=== PATIENT | female | born 2005 | race Caucasian/White ===

== ENCOUNTER 2025-01-23 19:13 | Emergency (ER) | payer SELFPAY ==
--- NOTE | ~2025-01-23 | CT_ITS ---
CLINICAL HISTORY: flank pain, hematuria CT abdomen and pelvis without contrast Comparison: None provided. Findings: No consolidation or effusion. The gallbladder and solid organs are within normal limits. No radiopaque left renal calculi are identified. Tiny nonobstructing right renal calculus present on coronal image number 51 of series 7. No hydronephrosis or hydroureter. No significant perinephric fat stranding identified. No bowel obstruction, pneumoperitoneum, or pneumatosis. Pelvic contents are unremarkable in appearance given the noncontrast technique. No bladder wall thickening. Minimal free fluid identified within the pelvis. Normal appendix. No acute fracture visualized. IMPRESSION: 1. No acute inflammatory process identified within the abdomen or pelvis. 2. Tiny nonobstructing right renal calculus. No hydronephrosis or hydroureter. 3. Minimal nonspecific free fluid present within the pelvis, possibly physiologic in etiology or related to a recently ruptured ovarian cyst. This document has been electronically signed by: Yoandy Garcia MD on 01/23/2025 22:09:19
[2025-01-23 19:27] VITALS: BP 144/68; PULSE 97; RESP 18; TEMP 36.6; O2SAT 98; BMI 29.7
--- NOTE | 2025-01-23 19:27 | ED.GENADULT ---
HPI - General Adult General Chief complaint: Urogenital-Female Stated complaint: bloody pain urinating Time Seen by Provider: 01/23/25 21:05 Source: patient Mode of arrival: ambulatory History of Present Illness ED Provider: Dr. Angeline Story HPI narrative: Previously healthy 19-year-old female presenting with suprapubic abdominal pain radiating to the right flank ongoing for the last 2 days or so. Describes some dysuria and yesterday noticed hematuria. No associated fever. Mild associated constipation. No reported hematochezia with her last bowel movement. Last menstrual cycle was about 3 weeks ago. Pain does not feel like period cramps. Has a history of UTI and reports pain is similar to that. Related Data Previous Rx's ?Medication ?Instructions ?Recorded cephalexin 500 mg capsule 500 mg PO QID 7 days #28 caps 01/23/25 ondansetron 4 mg disintegrating 4 mg PO Q8H PRN nausea and 01/23/25 tablet vomiting #10 tabs phenazopyridine 100 mg tablet 100 mg PO TID PRN pain 6 doses #6 01/23/25 (Pyridium) tabs Allergies Allergy/AdvReac Type Severity Reaction Status Date / Time cristóbal Allergy Hives Verified 01/23/25 19:31 Review of Systems Review of Systems: as per HPI, full review of systems performed and negative but for the above mentioned pertinent positives and negatives. [facility] Social History Social History Alcohol intake: current Smoked in Last 30 Days: No Use of substances other than those prescribed or required for medical reasons: Yes Substance Use Type: Marijuana Advance Directives: No Advance Directives Information Provided: No Patient : No Physical Exam ED Exam Exam: GENERAL: Well-Appearing, conversant, no acute distress. SKIN: Normal skin color for ethnicity, warm, dry, no rashes noted. HEENT:? Normocephalic, atraumatic, no stridor, posterior oropharynx nonerythematous, dentition intact, EOMI. NECK: Soft, supple, full ROM, midline structures nontender, no step-offs, no deformities, no lymphadenopathy. CHEST: Heart regular rate and rhythm, no murmurs, symmetric chest rise and fall. PULMONARY: Clear to auscultation bilaterally, no labored breathing, no wheezes/rhales/rhonchi. ABDOMINAL: Soft, nondistended, suprapubic tenderness to palpation, positive bowel sounds in all quadrants. : Deferred. MUSCULOSKELETAL: Normal tone, full range of motion, no deformities, no peripheral edema. NEURO: Alert and oriented x3, CN II through XII intact, equal strength and sensation bilateral upper and lower extremities, no focal neurologic deficits.? PSYCHIATRIC: Normal affect, fluid speech, good eye contact and appropriate demeanor. Vital Signs: Vital Signs - 24 hr 01/23/25 19:27 01/23/25 21:15 Temperature 97.9 F 98.6 F Pulse Rate 97 80 Respiratory Rate 18 18 Blood Pressure 144/68 H 125/81 Pulse Oximetry 98 98 Oxygen Delivery Method Room Air Room Air BMI result Body Mass Index 29.7 Course Course Course Narrative: 19 year old female presents to the ED with blood in the urine. Earlier this afternoon, she had pain the lower abdomen and increased urinary frequency though with minimal volume each time. There was blood in the toilet and when wiping x1. There is associated right sided flank pain. She has nausea but no vomiting. She has never had kidney stones before. Medications Administered Discontinued Medications Generic Name Dose Route Start Last Admin Trade Name Freq PRN Reason Stop Dose Admin Cephalexin HCl 500 mg 01/23/25 21:17 01/23/25 21:27 Cephalexin 500 Mg Capsule PO 01/23/25 21:18 500 mg ONCE ONE Administration Ibuprofen 600 mg 01/23/25 21:17 01/23/25 21:28 Ibuprofen 600 Mg Tablet PO 01/23/25 21:18 600 mg ONCE ONE Administration Ondansetron HCl 4 mg 01/23/25 21:55 01/23/25 22:01 Ondansetron Odt 4 Mg Tab.Rapdis TRANSLINGU 01/23/25 21:56 4 mg ONCE ONE Administration Phenazopyridine HCl 200 mg 01/23/25 21:17 01/23/25 21:28 Phenazopyridine Hcl 200 Mg Tablet PO 01/23/25 21:18 200 mg ONCE ONE Administration Medical Decision Making Medical Decision Making [facility] Narrative: This patient presents today with a chief complaint of pelvic pain and dysuria. Differential diagnosis is broad and would include ovarian torsion, PID, TOA, if ectopic , pyelonephritis, kidney stone, UTI among many others. A broad-based workup based on history and physical exam was obtained Patient was given motrin, pyridium for pain control. 10:29 PM 01/23/2025 (Dr. Angeline Story, Heron.O.) urinalysis does show evidence of infection. She has normal kidney function, normal electrolytes, no elevation in her white blood cell count. She is afebrile today. CT does not show evidence of obstructing ureteral stone. She does have a small kidney stone in the right kidney but I doubt this is contributing to her pain or infection today. We had an extensive discussion regarding use of antibiotics as well as strict return precautions to the emergency department. Differential Diagnosis Differential Diagnoses: The differential diagnosis associated with the presentation includes (as above) Admission/Observation Consideration of admission/observation: Escalation of care including admission/observation considered Lab Data MDM Lab Attestation statement: I reviewed the patient's lab results. 01/23/25 19:51 01/23/25 19:50 Labs: Lab Results 01/23/25 01/23/25 Range/Units 19:50 19:51 WBC 12.0 H (4.8-10.8) X10*3/uL RBC 4.30 (4.20-5.50) X10*6/uL Hgb 12.9 (12.0-16.0) g/dl Hct 37.1 (37.0-47.0) % MCV 86.3 (80.0-98.0) fL MCH 30.0 (27.0-33.0) pg MCHC 34.8 (31.0-35.0) g/dl RDW 13.5 (11.0-16.0) % Plt Count 229 (160-400) X10*3/uL MPV 10.8 (9.4-12.3) fL Immature Gran % (Auto) 0.3 (0.0-0.4) % Neut % (Auto) 77.5 H (45-73) % Lymph % (Auto) 14.7 L (20-40) % [place] % (Auto) 6.9 (2-11) % Eos % (Auto) 0.3 (0-4) % Baso % (Auto) 0.3 (0-2) % Lymph # (Auto) 1.8 (1.2-4.9) X10*3/uL [place] # (Auto) 0.8 (0.1-1.2) X10*3/uL Eos # (Auto) 0.0 (0.0-0.4) X10*3/uL Baso # (Auto) 0.0 (0.0-0.2) X10*3/uL Abs Immat Gran (auto) 0.04 H (0.00-0.03) X10*3/uL Absolute Neuts (auto) 9.3 H (2.0-8.3) x10*3/uL Absolute Nucleated RBC 0.000 (0.0-0.012) X10*3/uL Nucleated RBC % (auto) 0.0 (0.0-0.2) /100WBC Sodium 136 (135-145) mmol/L Potassium 3.6 (3.3-5.1) mmol/L Chloride 104 (96-108) mmol/L Carbon Dioxide 24 (22-29) mmol/L Anion Gap 12 (12-20) BUN 10 (9-16) mg/dL Creatinine 0.82 (0.5-1.4) mg/dL Estim Creat Clear Calc 114.0 Estimated GFR > 60 Random Glucose 120 H (60-115) mg/dL Calcium 9.4 (8.4-10.2) mg/dL Magnesium 2.0 (1.6-2.6) mg/dL Total Bilirubin 0.5 (0.0-1.0) mg/dL AST 29 (5-31) U/L ALT 31 (0-31) U/L Alkaline Phosphatase 73 (39-117) U/L Total Protein 7.4 (6.5-8.0) g/dL Albumin 4.8 (3.5-5.0) g/dL Beta HCG, Quant < 2 mIU/mL Urine Color Yellow Urine Appearance Turbid Urine pH 6.0 (5.0-9.0) Ur Specific [place] 1.020 (1.005-1.025) Urine Protein 300 (3+) H (Neg-Trace) mg/dL Urine Glucose (UA) Negative (Negative) mg/dL Urine Ketones Negative (Negative) mg/dL Urine Blood Large (3+) H (Negative) Urine Nitrite Positive H (Negative) Ur Leukocyte Esterase Large (3+) H (Negative) Urine RBC >20 H (0-2) /HPF Urine WBC >50 H (0-5) /HPF Ur Squamous Epith Cells 3-5 (0-2) /HPF Urine Bacteria 2+ (None Seen) Hyaline Casts 0-2 (0-2) /LPF Radiology Impression Discussion of test interpretation with radiology: I have reviewed the radiologist's reading. Prescription Management I considered prescription management with: Pain Medication and Antibiotic Discharge Plan Discharge Clinical Impression: Hemorrhagic cystitis Patient Disposition: Home, Self-Care Instructions: Urinary Tract Infection in Women (ED) Additional Instructions: Take your antibiotic as prescribed until the course is completed. Do not stop this medication early if you start to feel better. Return to the emergency department with any new or worsening symptoms including: Worsening pain, fevers greater than 100? despite antibiotic treatment, vomiting, or any new symptom that concerns you. Call 911 with any medical emergency. Prescriptions: New phenazopyridine [Pyridium] 100 mg tablet 100 mg PO TID PRN (Reason: pain) Qty: 6 0RF cephalexin 500 mg capsule 500 mg PO QID 7 Days Qty: 28 0RF ondansetron 4 mg tablet,disintegrating 4 mg PO Q8H PRN (Reason: nausea and vomiting) Qty: 10 0RF Print Language: Solomon Islander
[2025-01-23 19:57] LABS: MANUAL DIFF FLAG NO
[2025-01-23 19:58] LABS: Appearance Urine Turbid; Glucose Urine UA Negative (Negative); Hematocrit 37.1 % (37.0-47.0); Hemoglobin 12.9 g/dl (12.0-16.0); Imm Gran Abs Auto 0.04 X10*3/uL (0.00-0.03); Imm Gran Pct Auto 0.3 % (0.0-0.4); Lymphocytes Absolute Auto 1.8 X10*3/uL (1.2-4.9); Mean Corpuscular HGB Conc 34.8 g/dl (31.0-35.0); Mean Corpuscular Hemoglobin 30.0 pg (27.0-33.0); Mean Corpuscular Volume 86.3 fL (80.0-98.0); NRBC Abs Auto 0.000 X10*3/uL (0.0-0.012); NRBC Pct Auto 0.0 /100WBC (0.0-0.2); PH 6.0 (5.0-9.0); Platelet Count 229 X10*3/uL (160-400); Red Blood Count 4.30 X10*6/uL (4.20-5.50); Specific Gravity - Urine 1.020 (1.005-1.025); UMIC TRIGGER UACC YES; White Blood Count 12.0 X10*3/uL (4.8-10.8)
[2025-01-23 20:03] LABS: UACC Culture Trigger YES
[2025-01-23 20:11] LABS: Alanine Aminotransferase 31 U/L (0-31); Albumin Level 4.8 g/dL (3.5-5.0); Alkaline Phosphatase 73 U/L (39-117); Anion Gap 12 (12-20); Aspartate Amino Transferase 29 U/L (5-31); Blood Urea Nitrogen 10 mg/dL (9-16); Calcium 9.4 mg/dL (8.4-10.2); Carbon Dioxide 24 mmol/L (22-29); Chloride 104 mmol/L (96-108); Creatinine Clr Calc Pharmacy 114.0; Estimated Glomerular Filt Rate > 60; Magnesium 2.0 mg/dL (1.6-2.6); Potassium 3.6 mmol/L (3.3-5.1); Sodium 136 mmol/L (135-145); Total Protein 7.4 g/dL (6.5-8.0)
[2025-01-23 21:15] VITALS: BP 125/81; PULSE 80; RESP 18; TEMP 37; O2SAT 98
--- OUTSIDE RECORDS SUMMARY | 2025-01-23 21:32 | XMS_ITS | Encounter Summary ---
Author Organization [facility] Address [address] [place] [address] Care Team Providers Care Manipulator Operator Name Role Phone Soco Riojas MD Primary Care Provider [phone] Encounter Details Date Type Department Care Team (Late st Contact Info) Description 10/14/2023 Lab Requisition [facility] [address] [place] [address] [phone] Vin Moreno MD [address] [facility] [address] [place] [address] Encounter for general adult medical examination without abnormal findings Social History Tobacco Use Types Packs/Day Years Used Date Smoking Tobacco: Never Smokeless Tobacco: Never Alcohol Use Standard Drinks/Week Comments Not Currently 0 (1 standard drink = 0.6 oz pur e alcohol) Comments Unknown Sex and Gender Information Value Date Recorded Sex Assigned at Female 04/24/2018 10:30 AM EST Legal Sex Female 10:43 PM EDT Gender Identity Female 04/24/2018 10:30 AM EST Sexual Orientation Not on file documented as of this encounter Plan of Treatment Not on file documented as of this encounter Procedures Procedure Name Priority Date/Time Associated Diagnosis Comments HIGH RISK HPV SCREEN (>30 YEARS) Routine 10/13/2023 10:00 AM EDT Encounter for general adult medical examination without abnormal findings LIQUID BASED PAP, CO-TESTING Routine 10/13/2023 10:00 AM EDT Encounter for general adult medical examination without abnormal findings documented in this encounter Results * High Risk HPV Screen (>30 years) (10/13/2023 10:00 AM EDT) HPV mRNA E6 / E7 Negative Negative 10/15/2023 3:23 PM EDT [facility] Comment: This HPV screen detects 12 high risk HPV types 31, 33, 35, 39, 45, 51, 52, 56, 58, 59, 66, and 68. HPV type 16 and type 18 are reported separately. The corwin HPV test detects 14 high risk HPV (HPV-HR) types in all. A negative result does not preclude the presence of HPV infection because results depend on adequate specimen collection, absence of inhibitors, and sufficient DNA to be detected. HPV 16 Negative Negative 10/15/2023 3:23 PM EDT [facility] HPV 18 Negative Negative 10/15/2023 3:23 PM EDT [facility] Genital CERVIX UTERI STRUCTURE / Unknown 10/13/2023 10:00 AM EDT 10/14/2023 8:47 AM EDT Vin Moreno MD MICROBIOLOGY - GENERAL ORDERABLE S Final Result [facility] [address] [place] [address] * LB PAP, Co-testing (10/13/2023 10:00 AM EDT) Pathologist [facility] Clinical Inforamtion: None given 10/21/2023 8:00 AM EDT [facility] SecurityLuzmaThrupointMARTA VALDIVIA LMP NONE GIVEN 10/21/2023 8:00 AM EDT [facility] SecurityFILOMENA VALDIVIA Previous PAP NONE GIVEN 10/21/2023 8:00 AM EDT [facility] SecurityANGELIA VALDIVIA Previous Biopsy NONE GIVEN 8:00 AM EDT [facility] SecurityLThrupointOUGH SHEA Source None given 10/21/2023 8:00 AM EDT [facility] PALOUGH SHEA Adequacy Satisfactory for evaluation. Endocervical/ziegler sformation zone component present. 10/21/2023 8:00 AM EDT [facility] EVANGELINA VALDIVIA Interpretation Cytology Results: Negative for intraepithelial lesion or malignancy. 10/21/2023 8:00 AM EDT [facility] EVANGELNIA VALDIVIA Comment: This Pap test has been evaluated with computer assisted technology. 10/21/2023 8:00 AM EDT [facility] Precision Lens Polisher: LOUISE DIGGS (ASCP) CT Screening Location: [employer] [place] [address] Slide preparation performed at: [facility] [address] CLIA No. [id number] 10/21/2023 8:00 AM EDT [facility] Comment SEE NOTE 10/21/2023 8:00 AM EDT [facility] Comment: EXPLANATORY NOTE: The Pap is a screening test for cervical cancer. It is not a diagnostic test and is subject to false negative and false positive results. It is most reliable when a satisfactory sample, regularly obtained, is submitted with relevant clinical findings and history, and when the Pap result is evaluated along with historic and current clinical information. Genital CERVIX UTERI STRUCTURE / Unknown 10/13/2023 10:00 AM EDT 10/14/2023 8:47 AM EDT Narrative [facility] - 10/21/2023 8:00 AM EDT Performing Organization Information: Site ID: [id number] Name: [facility] Address: [address] [place] [id number] Director: FANTA MCKEON MD us Vin Moreno MD PATHOLOGY/CYTOLOGY ORDERABLES Fi nal Result [address] [address], documented in this encounter Visit Diagnoses Diagnosis Encounter for general adult medical examination without abnormal findings documented in this encounter Care Teams Manipulator Operator Relationship Specialty Start Date End Date Soco Riojas MD [address] [place] [address] [address] [place] [address] PCP - General 07/20/09 documented as of this encounter
--- OUTSIDE RECORDS SUMMARY | 2025-01-23 21:32 | XMS_ITS | Clinical Summary ---
Author Organization [facility] Address [address] [facility] [address] [place] [address] Care Team Providers Care Diabetes Clinical Manager Name Role Phone Soco Riojas MD Primary Care Provider [phone] Allergies Active Allergy Reactions Criticality Noted Date Comments Garrett Flavor Rash Low 04/28/2017 Medications escitalopram (Lexapro) 10 mg tablet Take 15 mg by mouth once daily. Active Active Problems Problem Noted Date Diagnosed Date Perioral dermatitis 08/22/2023 POTS (postural orthostatic tachycardia syndrome) 08/17/2022 Lightheadedness 08/17/2022 Anxiety 08/17/2022 Social History Tobacco Use Types Packs/Day Years Used Date Smoking Tobacco: Unknown Tobacco Cessation:Counseling Given: Not Answered Comments Unknown Sex and Gender Information Value Date Recorded Sex Assigned at Female 11/20/2023 12:26 PM EDT Legal Sex Female 12:17 AM EST Gender Identity Female 11/20/2023 12:26 PM EDT Sexual Orientation Lesbian 11/20/2023 12 :26 PM EDT Last Filed Vital Signs Vital Sign Reading Time Taken Comments Blood Pressure 127/85 11/20/2023 4:31 PM EDT Pulse 75 11/20/2023 3:30 PM EDT Temperature 37.1 C (98.7 F) 11/20/2023 12:27 PM EDT Respiratory Rate 17 11/20/2023 3:30 PM EDT Oxygen Saturation 98% 11/20/2023 3:30 PM EDT Inhaled Oxygen Concentration - - Weight 59 kg (130 lb) 11/20/2023 12:27 PM EDT Height 162.6 cm (5' 4 ) 11/20/2023 12:27 PM EDT Body Mass Index 22.31 11/20/2023 12:27 PM EDT Plan of Treatment Health Maintenance Due Date Last Done Comments HIV Screening 2003 Meningococcal B Vaccine (1 of 2 - Standard) 2019 HPV Vaccines (2 - 3-dose series) 06/22/2019 05/25/2019 Hepatitis C Screening 2021 Chlamydia Screening 04/26/2022 04/26/2021, 04/26/2021, 10/28/2020, Additional history exists Depression Screening 04/21/2024 COVID-19 Vaccine (3 - season) 2024 09/09/2020, 08/19/2020 Influenza Vaccine (#1) 2024 DTaP/Tdap/Td Vaccines (2 - Td or Tdap) 02/16/2025 02/16/2015 Pap Smear 10/12/2026 10/13/2023, 10/13/2023 Hepatitis B Vaccines Completed 03/28/2004, 2003, 2003 MMR Vaccines Completed 12/22/2008, 03/28/2004 Varicella Vaccines Completed 12/22/2008, 03/28/2004 Meningococcal Vaccine Completed 06/01/2020, 015 HIB Vaccines Aged Out No longer eligi ble based on patient's age to complete this topic Hepatitis A Vaccines Aged Out No long er eligible based on patient's age to complete this topic IPV Vaccines Aged Out No longer eligi ble based on patient's age to complete this topic Pneumococcal Vaccine: Pediatrics (0 to 5 Years) and At-Risk Patients (6 to 49 Years) Aged Out No longer eligible based on patient's age to complete this topic Rotavirus Vaccines Aged Out No longer eligible based on patient's age to complete this topic Insurance [facility] OUT STATE PPO Care Teams Diabetes Clinical Manager Relationship Specialty Start Date End Date Soco Riojas MD PCP - General 05/25/21
--- OUTSIDE RECORDS SUMMARY | 2025-01-23 21:32 | XMS_ITS | Clinical Summary ---
Author Organization [facility] Care Address [address] [place] [id number] Care Team Providers Care Edge Drummer Name Role Phone Generic, Provider Primary Care Provider [phone] Allergies No known active allergies Medications No known medications Active Problems No known active problems Social History Tobacco Use Types Packs/Day Years Used Date Smoking Tobacco: Never Alcohol Use Standard Drinks/Week Comments No 0 (1 standard drink = 0.6 oz pur e alcohol) Smokers at home outside Comments Unknown Sex and Gender Information Value Date Recorded Sex Assigned at Not on file Legal Sex Female 8:34 AM EST Gender Identity Not on file Sexual Orientation Not on file Last Filed Vital Signs Vital Sign Reading Time Taken Comments Blood Pressure - - Pulse 105 08/17/2012 10:24 AM EDT Temperature 36.8 C (98.3 F) 08/17/2012 10:24 AM EDT Respiratory Rate 18 08/17/2012 10:24 AM EDT Oxygen Saturation 100% 08/17/2012 10:24 AM EDT Inhaled Oxygen Concentration - - Weight 38.4 kg (84 lb 10.5 oz) 08/17/2012 10:24 AM EDT Height - - Body Mass Index - - Plan of Treatment Not on file Insurance #1 [place] [address] MEDICAID [facility] Care Teams Edge Drummer Relationship Specialty Start Date End Date Generic, Provider [address] [address] PCP - General Generic/Test/No PCP 08/17/12
--- OUTSIDE RECORDS SUMMARY | 2025-01-23 21:32 | XMS_ITS | Encounter Summary ---
Author Organization [facility] Address [address] [place] [address] Care Team Providers Care Field Service Poultry Technician Name Role Phone Soco Riojas MD Primary Care Provider [phone] Encounter Details Date Type Department Care Team (Latest Contact Info) Description 04/26/2021 Lab Requisition [facility] [address] [place] [address] [phone] Ritu Grimm, DO [address] [place] [address] Dysuria; Other specified noninflammatory disorders of vagina Social History Tobacco Use Types Packs/Day Years Used Date Smoking Tobacco: Never Smokeless Tobacco: Never Comments Unknown Sex and Gender Information Value Date Recorded Sex Assigned at Female 04/24/2018 10:30 AM EST Legal Sex Female 10:43 PM EDT Gender Identity Female 04/24/2018 10:30 AM EST Sexual Orientation Not on file documented as of this encounter Plan of Treatment Not on file documented as of this encounter Procedures Procedure Name Priority Date/Time Associated Diagnosis Comments VAGINITIS PANEL KIT Routine 04/26/2021 8 :26 PM EST Dysuria Other specified noninflammatory disorders of vagina CULTURE, AEROBIC, URINE Routine 04/26/2021 8:26 PM EST Dysuria Other specified noninflammatory disorders of vagina AMPLIFIED PROBE, CHLAMYDIA AND GC Routine 04/26/2021 8:26 PM EST Dysuria Other specified noninflammatory disorders of vagina URINALYSIS WITH MICROSCOPIC Routine 04/26/2021 8:26 PM EST Dysuria Other specified noninflammatory disorders of vagina documented in this encounter Results * Chlamydia and GC AmplifiedProbe (04/26/2021 8:26 PM EST) C. trachomatis by Amplified Probe Negative Negative PANTHER NON-FUSION 04/29/2021 2:21 PM EST [facility] N. gonorrhoeae by Amplified Probe Negative Negative TEN MILE NON-FUSION 04/29/2021 2:21 PM EST [facility] xOther FIRST STREAM URINE SPECIMEN / Unknown 04/26/2021 8:26 PM EST 04/26/2021 8:27 PM EST [facility] - 04/29/2021 2:21 PM EST This test was developed and its performance characteristics determined internally by our laboratory for female urine samples. It has not been cleared or approved by the U.S. Food and Drug Administration. FDA does not require this test to go through premarket FDA review. This test is used for clinical purposes. It should not be regarded as investigational or for research. This laboratory is certified under Clinical Laboratory Improvement Amendments (CLIA) as qualified to perform high complexity clinical laboratory testing Riut Grimm DO MICROBIOLOGY - GENERAL ORD ERABLES Final Result [facility] [address] [place] [address] * (ABNORMAL) Urinalysis with Sediment (04/26/2021 8:26 PM EST) Color, Urine Yellow Colorless, Straw, Yellow 04/26/2021 9:11 PM EST [facility] Clarity, Urine Clear Clear 04/26/2021 9:11 PM EST [facility] pH, Urine 5.0 5.0 - 9.0 04/26/2021 9:11 PM EST [facility] Specific [place], Urine 1.019 1.001 - 1.030 04/26/2021 9:11 PM EST [facility] Protein, Urine Negative Negative 04/26/2021 9:11 PM EST [facility] Glucose, Urine Negative Negative 04/26/2021 9:11 PM EST [facility] Ketone, Urine Negative Negative 04/26/2021 9:11 PM EST [facility] Bilirubin, Urine Negative Negative 04/26/2021 9:11 PM EST [facility] Urobilinogen, Urine Negative Negative 04/26/2021 9:11 PM EST [facility] Blood, Urine Negative Negative 04/26/2021 9:11 PM EST [facility] Leukocyte Esterase, Urine Negative Negative 04/26/2021 9:11 PM EST [facility] Nitrite, Urine Negative Negative 04/26/2021 9:11 PM EST [facility] White Blood Cells, Urine 1 <=4 /hpf 04/26/2021 9:11 PM EST [facility] Red Blood Cells, Urine 1 <=2 /hpf 04/26/2021 9:11 PM EST [facility] Squamous Epithelial Cells Many(A) None, Rare, Few /HPF 04/26/2021 9:11 PM EST [facility] Mucous Threads 1+ None Seen, 1+, 2+ 04/26/2021 9:11 PM EST [facility] Urine MID-STREAM URINE SPECIMEN / Unknown 04/26/2021 8:26 PM EST 04/26/2021 8:26 PM EST us Ritu Grimm DO URINE ORDERABLES Final Res ult Performing Organization Address City/[facility]/ZIP Co de Phone Number [facility] [address] [place] [address] * Culture, Aerobic, Urine (04/26/2021 8:26 PM EST) Culture 10,000-50,000 CFU/mL mixed urogenital maya, probable contamination MILE 04/28/2021 6:52 AM EST [facility] Urine 04/26/2021 8:26 PM EST 04/26/2021 8:26 PM EST us Ritu Grimm DO MICROBIOLOGY - GENERAL ORD ERABLES Final Result Performing Organization Address City/[facility]/ZIP Co de Phone Number [facility] [address] [place] [address], * Vaginitis Panel Kit (04/26/2021 8:26 PM EST) Gardnerella Vaginalis Negative Negative MILE 04/27/2021 6:02 AM EST [facility] Trichomonas vaginalis Negative Negative MILE 04/27/2021 6:02 AM EST [facility] Bambi species Negative Negative MILE 04/27/2021 6:02 AM EST [facility] Genital VAGINAL STRUCTURE / Unknown 04/26/2021 8:26 PM EST 04/26/2021 8:26 PM EST Narrative [facility] - 04/27/2021 6:02 AM EST Testing performed using [employer] VPIII microbial identification system by DNA probe. Ritu Grimm DO MICROBIOLOGY - GENERAL ORD ERABLES Final Result [facility] [address] [place] [address], documented in this encounter Visit Diagnoses Diagnosis Dysuria Other specified noninflammatory disorders of vagina documented in this encounter Care Teams Field Service Poultry Technician Relationship Specialty Start Date End Date Soco Riojas MD [address] [place] [address] [address] [place] [address] PCP - General 07/20/09 documented as of this encounter
--- OUTSIDE RECORDS SUMMARY | 2025-01-23 21:33 | XMS_ITS | Encounter Summary ---
Author Organization Neda Pineda [facility] Address [address] [place] [address] Care Team Providers Care Painter And Grader Cork Name Role Phone Soco Riojas MD Primary Care Provider [phone] Encounter Details Date Type Department Care Team (Late st Contact Info) Description 09/13/2020 Lab Requisition [facility] [address] [place] [address] [phone] Dariana Tan PA [address] [place] [address] Dysuria Social History Tobacco Use Types Packs/Day Years [...] Procedure Name Priority Date/Time Associated Diagnosis Comments CULTURE, AEROBIC, URINE Routine 09/13/2020 6:56 PM EDT Dysuria URINALYSIS WITH URINE CULTURE REFLEX Routine 09/13/2020 6:56 PM EDT Dysuria documented in this encounter Results * (ABNORMAL) Culture, Aerobic, Urine (09/13/2020 6:56 PM EDT) Culture >100,000 CFU/mL mixed urogenital maya, probable contamination MILE 09/16/2020 6:48 AM EDT [facility] Culture >100,000 CFU/ML Escherichia coli(A) MILE 09/16/2020 6:48 AM EDT [facility] Comment:Predominant organism Urine MID-STREAM URINE SPECIMEN / Unknown 09/13/2020 6:56 PM EDT 09/13/2020 8:45 PM EDT Narrative Organism Antibiotic Method Susceptibility Escherichia coli - MILE Escherichia coli Ampicillin MILE 4 ug/ml: Sensitive Escherichia coli Ampicillin + Sulbactam MILE <=2 ug/ml: Sensitive Escherichia coli Cefazolin MILE <=4 ug/ml: Sensitive Escherichia coli Ciprofloxacin MILE <=0.25 ug/ml: Sensitive Escherichia coli Meropenem MILE <=0.25 ug/ml: Sensitive Escherichia coli Gentamicin MILE <=1 ug/ml: Sensitive Escherichia coli Nitrofurantoin MILE <=16 ug/ml: Sensitive Escherichia coli Trimethoprim + Sulfamethoxazole MILE <=20 ug/ml: Sensitive Escherichia coli Piperacillin + Tazobactam MILE <=4 ug/ml: Sensitive Escherichia coli Levofloxacin MILE <=0.12 ug/ml: Sensitive Dariana RIOS MICROBIOLOGY - GENERAL ORDERABLE S Final Result [facility] [address] [place] [address], * (ABNORMAL) Urinalysis with Reflex to Urine Culture (09/13/2020 6:56 PM EDT) Color, Urine Yellow Colorless, Straw, Yellow 09/13/2020 8:45 PM EDT [facility] Clarity, Urine Slightly Cloudy(A) Clear 09/13/2020 8:45 PM EDT [facility] pH, Urine 6.0 5.0 - 9.0 09/13/2020 8:45 PM EDT [facility] Protein, Urine Negative Negative 09/13/2020 8:45 PM EDT [facility] Ketone, Urine Negative Negative 09/13/2020 8:45 PM EDT [facility] Glucose, Urine Negative Negative 09/13/2020 8:45 PM EDT [facility] Blood, Urine Negative Negative 09/13/2020 8:45 PM EDT [facility] Leukocyte Esterase, Urine Trace(A) Negative 09/13/2020 8:45 PM EDT [facility] Nitrite, Urine Negative Negative 09/13/2020 8:45 PM EDT [facility] Specific [place], Urine 1.020 1.001 - 1.035 09/13/2020 8:45 PM EDT [facility] Bilirubin, Urine Negative Negative 09/13/2020 8:45 PM EDT [facility] Urobilinogen, Urine Negative Negative 09/13/2020 8:45 PM EDT [facility] White Blood Cells, Urine 15(H) <=4 /hpf 09/13/2020 8:45 PM EDT [facility] Red Blood Cells, Urine 1 <=2 /hpf 09/13/2020 8:45 PM EDT [facility] Bacteria Urine Rare None Seen, Rare 09/13/2020 8:45 PM EDT [facility] Mucous Threads 1+ None Seen, 1+, 2+ 09/13/2020 8:45 PM EDT [facility] Squamous Epithelial Cells Many(A) None, Rare, Few /HPF 09/13/2020 8:45 PM EDT [facility] Urine MID-STREAM URINE SPECIMEN / Unknown 09/13/2020 6:56 PM EDT 09/13/2020 8:28 PM EDT us Dariana RIOS URINE ORDERABLES Final Result [facility] [address] [place] [address] documented in this encounter Visit Diagnoses Diagnosis Dysuria documented in this encounter Care Teams Painter And Grader Cork Relationship Specialty Start Date End Date Soco Riojas MD [address] [place] [address] [address] [place] [address] PCP - General 07/20/09 documented as of this encounter
--- OUTSIDE RECORDS SUMMARY | 2025-01-23 21:33 | XMS_ITS | Clinical Summary ---
Author Organization [facility] Address [address] [facility] [address] [place] [address] Phone Care Team Providers Care Manager Domestic Name Role Phone Soco Riojas MD Primary Care Provider [phone] Allergies No known active allergies Medications predniSONE (DELTASONE) 1 MG tablet Take 1 mg by mouth daily. Active fluocinolone (SYNALAR) 0.025 % ointment Apply topically 2 (two) times a day. Apply to affected areas bid x 2 weeks. 15 g 2 7 Active Active Problems Problem Noted Date Diagnosed Date Perioral dermatitis 08/22/2023 Immunizations No known immunizations Family History Medical History Relation Comments Melanoma Unspecified Relation Status Comments Unspecified Alive Social History Tobacco Use Types Packs/Day Years Used Date Smoking Tobacco: Some Days Cigarettes Smokeless Tobacco: Never Tobacco Cessation:Ready to Q uit: Not Asked; Counseling Given: Not Answered Alcohol Use Standard Drinks/Week Comments No 0 (1 standard drink = 0.6 oz pur e alcohol) Education Answer Date Recorded Are you interested in more education? Not on pipe e 08/16/2022 Are you concerned about learning? Not on file 08/16/2022 No 08/16/2022 No 08/16/2022 Digital Access Answer Date Recorded No 09/16/2022 No 09/16/2022 Reliable internet access at home? Not on file 09/16/2022 Device with a working camera? Not on file Comments Unknown Sex and Gender Information Value Date Recorded Sex Assigned at Not on file Legal Sex Female 11:49 AM EDT Gender Identity Not on file Sexual Orientation Not on file Last Filed Vital Signs Vital Sign Reading Time Taken Comments Blood Pressure 116/82 08/22/2023 2:58 PM EDT Pulse - - Temperature - - Respiratory Rate - - Oxygen Saturation - - Inhaled Oxygen Concentration - - Weight 59 kg (130 lb) 08/22/2023 2:58 PM EDT Height 165.1 cm (5' 5 ) 08/22/2023 2:58 PM EDT Body Mass Index 21.63 08/22/2023 2:58 PM EDT Plan of Treatment Health Maintenance Due Date Last Done Comments COMBINED DTaP,Tdap,Td (2 - T d or Tdap) 03/16/2015 02/16/2015 DEPRESSION SCREENING 2015 SMOKING Hx and SMOKELESS TOBACCO SCREENING 2016 CHLAMYDIA SCREENING 2019 MENINGOCOCCAL VACCINES (B) ( 1 of 2 - Standard) 2019 HPV VACCINES (2 - 3-dose series) 06/22/2019 05/25/2019 ADOLESCENT UNIVERSAL LIPID SCREENING 2020 HEPATITIS C SCREENING 2021 HIV ONE-TIME SCREENING (18-6 5 YEARS) 2021 PNEUMOCOCCAL VACCINES (0-49 years) (1 of 2 - PCV) 2022 PAP SMEAR 2024 INFLUENZA VACCINE (#1) 2024 COVID-19 VACCINE (3 - 2024-2 6 season) 2024 09/09/2020, 08/19/2020 Adult Td,Tdap Booster 02/16/2025 02/16/2015 MMR VACCINES Completed 12/22/2008, 03/28/2004 MENINGOCOCCAL VACCINES (ACWY) Completed , 02/16/2015 HEPATITIS A VACCINES Aged Out No long er eligible based on patient's age to complete this topic HIB VACCINES Aged Out No longer eligi ble based on patient's age to complete this topic Medical Devices Not on file Insurance [facility] OUT OF STATE PPO Care Teams Manager Domestic Relationship Specialty Start Date End Date Soco Riojas MD [address] [place] [id number] PCP - General Pediatrics 10/14/16 Additional Source Comments The information contained in this document represents components of the legal health record. It is not the complete legal health record.[facility]
--- OUTSIDE RECORDS SUMMARY | 2025-01-23 21:33 | XMS_ITS | Clinical Summary ---
Author Organization Neda Pineda [facility] Address [address] [place] [address] Care Team Providers Care Office Lead Name Role Phone Soco Riojas MD Primary Care Provider [phone] Allergies Active Allergy Reactions Criticality Noted Date Comments [place] Flavor Rash Low 04/28/2017 Medications LORazepam (ATIVAN) 0.5 MG tablet daily as needed. 2 Active omeprazole (PriLOSEC) [address] capsule 10 mg 2 times a day before breakfast & dinner. 2 Active ondansetron (ZOFRAN) 8 MG tablet daily as needed. 2 Active escitalopram oxalate (LEXAPRO) 10 MG tablet Take 1 tablet (10 mg total) by mouth daily. 3 Active Active Problems Problem Noted Date Diagnosed Date Lightheadedness 08/17/2022 POTS (postural orthostatic tachycardia syndrome) 08/17/2022 Anxiety 08/17/2022 Social History Tobacco Use [...] AM EST Sexual Orientation Not on file Last Filed Vital Signs Vital Sign Reading Time Taken Comments Blood Pressure 118/66 02/20/2022 10:34 AM EDT Pulse 95 04/24/2018 11:06 AM EST Temperature 36.6 C (97.9 F) 02/20/2022 10:34 AM EDT Respiratory Rate 18 04/24/2018 11:06 AM EST Oxygen Saturation 97% 04/24/2018 11:06 AM EST Inhaled Oxygen Concentration - - Weight 67.1 kg (148 lb) 02/20/2022 10:34 AM EDT Height 163.8 cm (5' 4.5 ) 02/20/2022 10:34 AM ED T Body Mass Index 25.01 02/20/2022 10:34 AM EDT Plan of Treatment Health Maintenance Due Date Last Done Comments Blood Pressure 2003 Depression Screening 2007 Meningococcal B Vaccines (1 of 2 - Standard) 2019 Hepatitis C Screening 2021 Chlamydia and Gonorrhea Screening 04/26/2022 04/26/2021, 10/28/2020, 08/18/2020 COVID-19 Vaccine (3 - 2024-2 6 season) 2024 09/09/2020, 08/19/2020 Influenza Vaccine (#1) 2024 DTaP,Tdap,and Td Vaccines (2 - Td or Tdap) 02/16/2025 02/16/2015 Cervical Cancer Screening 10/12/2026 Pap Smear 10/12/2026 10/13/2023, 10/13/2023 HPV/Cotest 2033 10/13/2023, 10/13/2023 Meningococcal Vaccines Completed , 02/16/2015 Pneumococcal Vaccine Aged Out No long er eligible based on patient's age to complete this topic Procedures Procedure Name Priority Date/Time Associated Diagnosis Comments LIQUID BASED PAP, CO-TESTING Routine 10/13/2023 10:00 AM EDT Encounter for general adult medical examination without abnormal findings HIGH RISK HPV SCREEN (>30 YEARS) Routine 10/13/2023 10:00 AM EDT Encounter for general adult medical examination without abnormal findings AMPLIFIED PROBE, CHLAMYDIA AND GC Routine 04/26/2021 8:26 PM EST Dysuria Other specified noninflammatory disorders of vagina from Last 3 Months or Most Recently Relevant to Health Maintenance Results * High Risk HPV Screen (>30 years) (10/13/2023 10:00 AM EDT) HPV mRNA E6 / E7 Negative Negative 10/15/2023 3:23 PM EDT [facility] Comment: This HPV screen detects [...] 18 Negative Negative 10/15/2023 3:23 PM EDT [facility] Genital CERVIX UTERI STRUCTURE / Unknown 10/13/2023 10:00 AM EDT 10/14/2023 8:47 AM EDT Vin Moreno MD MICROBIOLOGY - GENERAL ORDERABLE S Final Result [facility] [address] [place] [address] * LB PAP, Co-testing (10/13/2023 10:00 AM EDT) Clinical Inforamtion: None given 10/21/2023 8:00 AM EDT [facility] [place] LMP NONE GIVEN 10/21/2023 8:00 AM EDT [facility] [place] Previous PAP NONE GIVEN 10/21/2023 8:00 AM EDT [facility] [place] Previous Biopsy NONE GIVEN 8:00 AM EDT [facility] [place] Source None given 10/21/2023 8:00 AM EDT [facility] [place] Adequacy Satisfactory for evaluation. Endocervical/ziegler sformation zone component present. 10/21/2023 8:00 AM EDT [facility] [place] Interpretation Cytology Results: Negative for intraepithelial lesion or malignancy. 10/21/2023 8:00 AM EDT [facility] [place] Comment: This Pap test has been evaluated with computer assisted technology. 10/21/2023 8:00 AM EDT [facility] Accountant Machine Processing: LOUISE DIGGS (ASCP) CT Screening Location: [address] [address] Slide preparation performed at: [employer] [facility], [address] [place] [id number] CLIA No. [id number] 10/21/2023 8:00 AM EDT [facility] Comment SEE NOTE 10/21/2023 8:00 AM EDT [facility] Comment: EXPLANATORY NOTE: The Pap is a [...] AM EDT 10/14/2023 8:47 AM EDT Narrative [facility] - 10/21/2023 8:00 AM EDT Performing Organization Information: Site ID: [id number] Name: [facility] Address: [address] [place] [phone] Director: FANTA MCKEON MD Vin Moreno MD PATHOLOGY/CYTOLOGY ORDERABLES Fi nal Result [facility] [address] [place] [address], * Chlamydia and GC AmplifiedProbe (04/26/2021 8:26 PM EST) C. trachomatis by Amplified Probe Negative Negative PANTHER NON-FUSION 04/29/2021 2:21 PM EST [facility] N. gonorrhoeae by Amplified Probe Negative Negative PANTHER NON-FUSION 04/29/2021 2:21 PM EST [facility] xOther FIRST STREAM URINE SPECIMEN / Unknown 04/26/2021 8:26 PM EST 04/26/2021 8:27 PM EST Narrative [facility] - 04/29/2021 2:21 PM EST This test [...] to perform high complexity clinical laboratory testing Ritu Grimm DO MICROBIOLOGY - GENERAL ORD ERABLES Final Result [facility] [address] [place] [address] from Last 3 Months or Most Recently Relevant to Health Maintenance [place] [address] [place] [address] Care Teams Office Lead Relationship Specialty Start Date End Date Soco Riojas MD [address] [place] [address] [address] [place] [address] PCP - General 07/20/09
--- OUTSIDE RECORDS SUMMARY | 2025-01-23 21:33 | XMS_ITS | Encounter Summary ---
Author Organization Neda Pineda [facility] Address [address] [place] [address] Care Team Providers Care Radio Sales Account Executive Name Role Phone Soco Riojas MD Primary Care Provider [phone] Encounter Details Date Type Department Care Team ([facility] st Contact Info) Description 08/18/2020 Lab Requisition [facility] [address] [place] [address] [phone] Hermelinda Yi, FRETTED STRING INSTRUMENT REPAIRER [address] [place] [address] Urinary tract infection, site not specified Social History Tobacco Use Types Packs/Day Years [...] Associated Diagnosis Comments VAGINITIS PANEL KIT Routine 08/18/2020 1 1:10 AM EDT Urinary tract infection, site not specified CULTURE, AEROBIC, URINE Routine 08/18/2020 11:10 AM EDT Urinary tract infection, site not specified AMPLIFIED PROBE, CHLAMYDIA AND GC Routine 08/18/2020 11:10 AM EDT Urinary tract infection, site not specified URINALYSIS WITH MICROSCOPIC Routine 08/18/2020 11:10 AM EDT Urinary tract infection, site not specified documented in this encounter Results * Chlamydia and GC AmplifiedProbe (08/18/2020 11:10 AM EDT) C. trachomatis by Amplified Probe Negative Negative 08/21/2020 2:42 PM EDT [facility] N. gonorrhoeae by Amplified Probe Negative Negative 08/21/2020 2:42 PM EDT [facility] xOther FIRST STREAM URINE SPECIMEN / Unknown 08/18/2020 11:10 AM EDT 08/18/2020 11:10 AM EDT Narrative [facility] - 08/21/2020 2:42 PM EDT This test was developed and its performance [...] to perform high complexity clinical laboratory testing Hermelinda Yi NP MICROBIOLOGY - GENERAL ORDERABL ES Final Result [address] [address] * (ABNORMAL) Vaginitis Panel Kit (08/18/2020 11:10 AM EDT) Gardnerella Vaginalis Positive(A) Negative MILE 08/19/2020 5:45 AM EDT [facility] Trichomonas vaginalis Negative Negative MILE 08/19/2020 5:45 AM EDT [facility] Bambi species Negative Negative MILE 08/19/2020 5:45 AM EDT [facility] Genital VAGINAL STRUCTURE / Unknown 08/18/2020 11:10 AM EDT 08/18/2020 11:10 AM EDT [facility] - 08/19/2020 5:45 AM EDT Testing performed using ExoYou VPIII microbial identification system by DNA probe. Hermelinda Yi NP MICROBIOLOGY - GENERAL ORDERABL ES Final Result Performing Organization Address [facility] de Phone Number [facility] [address] [place] [address], * (ABNORMAL) Culture, Aerobic, Urine (08/18/2020 11:10 AM EDT) Culture >100,000 CFU/ML Escherichia coli(A) MILE 08/20/2020 6:55 AM EDT [facility] Urine MID-STREAM URINE SPECIMEN / Unknown 08/18/2020 11:10 AM EDT 08/18/2020 11:10 AM EDT Narrative Organism Antibiotic Method Susceptibility Escherichia coli - MILE Escherichia coli Ampicillin MILE >=32 ug/ml: Resistant Escherichia coli Ampicillin + Sulbactam MILE 16 ug/ml: Intermediate Escherichia coli Cefazolin MILE <=4 ug/ml: Sensitive Escherichia coli Ciprofloxacin MILE <=0.25 ug/ml: Sensitive Escherichia coli Meropenem MILE <=0.25 ug/ml: Sensitive Escherichia coli Gentamicin MILE <=1 ug/ml: Sensitive Escherichia coli Nitrofurantoin MILE <=16 ug/ml: Sensitive Escherichia coli Trimethoprim + Sulfamethoxazole MILE <=20 ug/ml: Sensitive Escherichia coli Piperacillin + Tazobactam MILE <=4 ug/ml: Sensitive Escherichia coli Levofloxacin MILE <=0.12 ug/ml: Sensitive Hermelinda Yi NP MICROBIOLOGY - GENERAL ORDERABL ES Final Result Performing Organization Address [facility] de Phone Number [facility] [address] [place] [address], * (ABNORMAL) Urinalysis with Sediment (08/18/2020 11:10 AM EDT) Color, Urine Yellow Colorless, Straw, Yellow 08/18/2020 11:29 AM EDT [facility] Clarity, Urine Cloudy(A) Clear 08/18/2020 11:29 AM EDT [facility] pH, Urine 6.0 5.0 - 9.0 08/18/2020 11:29 AM EDT [facility] Specific [place], Urine 1.020 1.001 - 1.035 08/18/2020 11:29 AM EDT [facility] Protein, Urine 30 mg/dL(A) Negative 11:29 AM EDT [facility] Glucose, Urine Negative Negative 08/18/2020 11:29 AM EDT [facility] Ketone, Urine Negative Negative 08/18/2020 11:29 AM EDT [facility] Bilirubin, Urine Negative Negative 08/18/2020 11:29 AM EDT [facility] Urobilinogen, Urine Negative Negative 08/18/2020 11:29 AM EDT [facility] Blood, Urine Moderate(A) Negative 08/18/2020 11:29 AM EDT [facility] Leukocyte Esterase, Urine Small(A) Negative 08/18/2020 11:29 AM EDT [facility] Nitrite, Urine Negative Negative 08/18/2020 11:29 AM EDT [facility] White Blood Cells, Urine 85(H) <=4 /hpf 08/18/2020 11:29 AM EDT [facility] Red Blood Cells, Urine 51(H) <=2 /hpf 08/18/2020 11:29 AM EDT [facility] Squamous Epithelial Cells Many(A) None, Rare, Few /HPF 08/18/2020 11:29 AM EDT [facility] Bacteria Urine Moderate(A) None Seen, Rare 08/18/2020 11:29 AM EDT [facility] Mucous Threads 4+(A) None Seen, 1+, 2+ 08/18/2020 11:29 AM EDT [facility] Urine MID-STREAM URINE SPECIMEN / Unknown 08/18/2020 11:10 AM EDT 08/18/2020 11:10 AM EDT us Hermelinda Yi FRETTED STRING INSTRUMENT REPAIRER URINE ORDERABLES Final Result [facility] [address] [place] [address] documented in this encounter Visit Diagnoses Diagnosis Urinary tract infection, site not specified documented in this encounter Care Teams Radio Sales Account Executive Relationship Specialty Start Date End Date Soco Riojas MD [address] [place] [address] [address] [place] [address] PCP - General 07/20/09 documented as of this encounter
[2025-01-23 22:37] VITALS: BP 122/85; PULSE 72; RESP 16; TEMP 37; O2SAT 98
[2025-01-23 22:39] VITALS: BP 122/85; PULSE 72; RESP 16; TEMP 37; O2SAT 98
== END 2025-01-23 22:40 | disposition home or self-care (01) ==
PROVIDERS: Physician Assistant; Emergency Provider Emergency Medicine
DX: N30.81 Other cystitis with hematuria (principal); K59.00 Constipation, unspecified; Z87.440 Personal history of urinary (tract) infections; Z79.899 Other long term (current) drug therapy
CPT/HCPCS: 36415; 74176; 80053; 81001; 83735; 84702; 85025; 87086; 87088; 87186; 99284

== ENCOUNTER → 2025-01-23 19:29 | Outpatient (BNV) | payer SELFPAY | PROVIDERS: Emergency Provider Emergency Medicine; Visit Provider Radiology Diagnostic Radiology | DX: N20.0 Calculus of kidney (principal) | CPT/HCPCS: 74176 ==